=== PATIENT | male | born 1960 | race Caucasian/White ===

== ENCOUNTER 2021-05-01 14:01 | Emergency (ER) | payer SELFPAY ==
[2021-05-01 15:32] LABS: Absolute Lymphocytes (CBC) 2.6 K/uL (0.7-4.9); Basophils % 0.5 % (0-1.3); Hematocrit 39.9 % (39.6-49.0); Lymphocytes % 25.2 % (15.3-44.8); MPV 7.9 fL (7.6-11.3); RBC Red Blood Cell Count 4.36 M/uL (4.33-5.43)
--- NOTE | 2021-05-01 15:57 | RAD REPORT ---
EXAM DESCRIPTION: US - Extremity Nonvascular Limited - 05/01/2021 3:29 pm CLINICAL HISTORY: abscess Chest wall swelling COMPARISON: No comparisons TECHNIQUE: Real-time sonographic evaluation of the area of interest was performed. FINDINGS: Heterogenous subcutaneous collection is present in the area of interest right lateral ches t wall measuring 20 x 9 x 7 mm. This may represent a small subcutaneous abscess collection.
[2021-05-01] MEDS ORDERED: LIDOCAINE 1% MPF 5 ML VIAL ONE (16:41)
[2021-05-01] MEDS ORDERED: levETIRAcetam 500 MG TAB ONE (16:42)
[2021-05-01] MEDS ORDERED: SMZ./TMP. 800/160 MG TABLET ONE (16:42)
--- NOTE | 2021-05-01 16:56 | ER ---
Nurse's Notes [facility] Name: Daniel Espitia Age: 60 yrs Sex: Male : 1960 Arrival Date: 05/01/2021 Time: 14:04 Bed 7 Private MD: None, None Diagnosis: Cutaneous abscess of chest wall Presentation: 05/01 14:09 Chief complaint: Patient states: Abscess to R trunk for 4 days. Redness has spread into ll1 entire R breast area now. + fever at home, doesn't know how high. Coronavirus screen: Client denies travel out of the [place] in the last 14 days. At this time, the client does not indicate any symptoms associated with coronavirus-19. Ebola Screen: Patient denies travel to an Ebola-affected area in the 21 days before illness onset. Initial Sepsis Screen: Does the patient meet any 2 criteria? HR > 90 bpm. No. Patient's initial sepsis screen is negative. Does the patient have a suspected source of infection? Yes: Skin breakdown/wound. Risk Assessment: Do you want to hurt yourself or someone else? Patient reports no desire to harm self or others. Onset of symptoms was April 27, 2021. 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 Last tetanus immunization: unknown, Flu vaccine status is unknown. - Social history:: Smoking status: Patient denies any tobacco usage or history of. Screenin:23 Abuse screen: Denies threats or abuse. Denies injuries from another. Nutritional kg screening: No deficits noted. Tuberculosis screening: No symptoms or risk factors identified. Fall Risk None identified. No fall in past 12 months (0 pts). No secondary diagnosis (0 pts). IV access (20 points). Ambulatory Aid- None/Bed Rest/Nurse Assist (0 pts). Gait- Normal/Bed Rest/Wheelchair (0 pts) Mental Status- Oriented to own ability (0 pts). Total Shaw Fall Scale indicates No Risk (0-24 pts). Assessment: 15:22 General: Appears uncomfortable, Behavior is calm, cooperative, appropriate for age, kg quiet. Pain: Complains of pain in Right breast Pain radiates to anterior aspect of right upper chest, anterior aspect of left upper chest, xiphoid area, mid-sternal area and right breast, RIght arm. 15:23 Neuro: No deficits noted. Cardiovascular: No deficits noted. Respiratory: No deficits kg noted. GI: No signs and/or symptoms were reported involving the gastrointestinal system. : No deficits noted. EENT: No deficits noted. Derm: Skin is pink, red, Skin temperature is warm Abscess located on Right breast, right flank Parent/caregiver reports the patient having pain that is 8 out of 10 on a pain scale. oozing. Vital Signs: 14:09 BP 143 / 93; Pulse 105; Resp 18; Temp 98.4; Pulse Ox 96% on R/A; Weight 120.2 kg; ll1 Height 5 ft. 10 in. (177.80 cm); Pain 8/10; 15:50 BP 115 / 82; Pulse 84; Resp 20; Pulse Ox 94% on R/A; kg 16:15 BP 121 / 81; Pulse 86; Resp 20; Pulse Ox 93% on R/A; kg 16:45 BP 122 / 84; Pulse 87; Resp 20; Pulse Ox 93% on R/A; kg 17:10 BP 125 / 74; Pulse 84; Resp 20; Pulse Ox 98% on R/A; kg 14:09 Body Mass Index 38.02 (120.20 kg, 177.80 cm) ll1 ED Course: 14:04 Patient arrived in ED. ds1 14:04 None, None is Private Physician. ds1 14:11 Triage completed. ll1 14:12 Arm band placed on. ll1 14:49 Patient placed in an exam room, on a stretcher. ll1 14:53 [facility] Schultz [facility]C [facility]. kb 14:53 Chilango Ortega MD is Attending Physician. kb 15:05 Inserted saline lock: 20 gauge in left antecubital area, using aseptic technique. kg 15:21 Dorothy Bob, RN is Primary Nurse. kg 15:23 Patient has correct armband on for positive identification. Placed in gown. Call light kg in reach. 15:29 US Extrmty Nonvasular Limited In Process Unspecified. EDMS 17:10 No provider procedures requiring assistance completed. IV discontinued, intact, kg bleeding controlled, No redness/swelling at site. Pressure dressing applied. Administered Medications: 16:23 Drug: KeFLEX (cephalexin) 500 mg Route: PO; kg 17:01 Follow up: Response: No adverse reaction kg 16:23 Drug: Bactrim (trimethoprim-sulfamethoxazole) (160 mg-800 mg (DS) 1 tablet Route: PO; kg 17:00 Follow up: Response: No adverse reaction kg 16:23 Drug: Lidocaine (1 %) 1 vials Volume: 5 ml; Route: Infiltration; kg 17:00 Follow up: Response: No adverse reaction kg Outcome: 16:55 Discharge ordered by MD. kb 17:10 Discharged to home ambulatory. kg 17:10 Condition: good 17:10 Discharge instructions given to patient, Instructed on discharge instructions, follow up and referral plans. Demonstrated understanding of instructions, follow-up care, medications, wound care, Prescriptions given X 2. 17:12 Patient left the ED. kg Signatures: Dispatcher [employer] EDMS Sudha Schultz, LENS CEMENTER-C LENS CEMENTER-Ckb Ping Conrad ds1 Naida Downey, RN RN ll1 Dorothy Bob, RN RN kg Corrections: (The following items were deleted from the chart) 15:00 14:09 Chief complaint: Patient states: Abscess to R chest for 4 days. Redness has ll1 spread into R breast area now. + fever at home, doesn't know number. ll1
--- NOTE | 2021-05-01 16:56 | EDPHYS ---
Physician Documentation [facility] Name: Daniel Espitia Age: 60 yrs Sex: Male : 1960 Arrival Date: 05/01/2021 Time: 14:04 Bed 7 Private MD: None, None ED Physician Chilango Ortega HPI: 05/01 15:35 This 60 yrs old Male presents to ER via Ambulatory with complaints of Boil. kb 15:36 The patient presents with an abscess of the right lateral anterior chest. Description: kb draining, erythematous, swollen, warm. Onset: The symptoms/episode began/occurred 4 day(s) ago. Possible cause(s): unknown. Associated signs and symptoms: Pertinent positives: drainage, erythema, fever, swelling. Modifying factors: the symptoms are alleviated by nothing, the symptoms are aggravated by pressure, squeezing the lesion and expressing the contents, touching. Severity of symptoms: At their worst the symptoms were moderate, in the emergency department the symptoms are unchanged. The patient has not experienced similar symptoms in the past. The patient has not recently seen a physician. Pt reports abscess that started 3-4 days ago to right lateral chest. States redness started spreading so he came in. Reports subjective fever that is relieved with advil. 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 Last tetanus immunization: unknown, Flu vaccine status is unknown. - Social history:: Smoking status: Patient denies any tobacco usage or history of. ROS: 15:35 Respiratory: Negative for shortness of breath, cough, wheezing, and pleuritic chest kb pain. 15:35 Constitutional: Positive for fever, Negative for body aches, chills, fatigue, malaise, poor PO intake, weight loss. 15:35 Skin: Positive for abscess, cellulitis, of the right lateral anterior chest. 15:35 All other systems are negative. Exam: 15:34 Constitutional: This is a well developed, well nourished patient who is awake, alert, kb and in no acute distress. ENT: Moist Mucous membranes Respiratory: Respirations even and unlabored. No increased work of breathing, no retractions or nasal flaring. Abdomen/GI: Soft, non-tender. No distention MS/ Extremity: Pulses equal, no cyanosis. Neurovascular intact. Full, normal range of motion. Neuro: Awake and alert, GCS 15, oriented to person, place, time, and situation. Moves all extremities. Normal gait. Psych: Awake, alert, with orientation to person, place and time. Behavior, mood, and affect are within normal limits. 15:34 Skin: abscess, that is moderate sized, of the right lateral anterior chest, with drainage, with surrounding cellulitis, that is moderate. Vital Signs: 14:09 BP 143 / 93; Pulse 105; Resp 18; Temp 98.4; Pulse Ox 96% on R/A; Weight 120.2 kg; ll1 Height 5 ft. 10 in. (177.80 cm); Pain 8/10; 15:50 BP 115 / 82; Pulse 84; Resp 20; Pulse Ox 94% on R/A; kg 16:15 BP 121 / 81; Pulse 86; Resp 20; Pulse Ox 93% on R/A; kg 16:45 BP 122 / 84; Pulse 87; Resp 20; Pulse Ox 93% on R/A; kg 17:10 BP 125 / 74; Pulse 84; Resp 20; Pulse Ox 98% on R/A; kg 14:09 Body Mass Index 38.02 (120.20 kg, 177.80 cm) ll1 Procedures: 16:54 I \T\ D: Incision and drainage was performed for an abscess of the right right lateral kb anterior chest Prepped with Betadine, Anesthetized with 3 ml's 1% Lidocaine. Incised with #11 blade. Drained moderate amount purulent fluid. Dressing: sterile 4x4 gauze, the patient tolerated the procedure well. MDM: 14:53 Patient medically screened. kb 15:35 Data reviewed: vital signs, nurses notes. Data interpreted: Pulse oximetry: on room air kb is 96 %. Interpretation: normal. 16:55 Counseling: I had a detailed discussion with the patient and/or guardian regarding: the kb historical points, exam findings, and any diagnostic results supporting the discharge/admit diagnosis, lab results, radiology results, the need for outpatient follow up, a family practitioner, to return to the emergency department if symptoms worsen or persist or if there are any questions or concerns that arise at home. 07/16 15:04 Order name: CBC with Diff; Complete Time: 15:33 kb 05/01 15:04 Order name: Basic Metabolic Panel; Complete Time: 15:49 kb 05/01 15:04 Order name: Blood Culture Adult (2) 05/01 15:04 Order name: Extrmty Nonvasular Limited; Complete Time: 15:57 kb 05/01 15:04 Order name: IV Start; Complete Time: 16:17 kb 05/01 15:58 Order name: I\T\D Setup; Complete Time: 16:17 kb Administered Medications: 16:23 Drug: KeFLEX (cephalexin) 500 mg Route: PO; kg 17:01 Follow up: Response: No adverse reaction kg 16:23 Drug: Bactrim (trimethoprim-sulfamethoxazole) (160 mg-800 mg (DS) 1 tablet Route: PO; kg 17:00 Follow up: Response: No adverse reaction kg 16:23 Drug: Lidocaine (1 %) 1 vials Volume: 5 ml; Route: Infiltration; kg 17:00 Follow up: Response: No adverse reaction kg Disposition Summary: 05/01/21 16:55 Discharge Ordered Location: Home kb Condition: Stable kb Diagnosis - Cutaneous abscess of chest wall kb Followup: kb - With: Emergency Department - When: As needed - Reason: Worsening of condition Followup: kb - With: Private Physician - When: 2 - 3 days - Reason: Recheck today's complaints, Continuance of care, Re-evaluation by your physician Discharge Instructions: - Discharge Summary Sheet kb - Skin Abscess, [id number] kb - Incision and Drainage, Care After kb Forms: - Medication Reconciliation Form kb - Thank You Letter kb - Antibiotic Education kb - Prescription Opioid Use kb Prescriptions: - Cephalexin 500 mg Oral Capsule - take 1 capsule by ORAL route every 8 hours for 10 days; 30 capsule; Refills: 0, kb Product Selection Permitted - Bactrim DS 800-160 mg Oral Tablet - take 1 tablet by ORAL route every 12 hours for 10 days; 20 tablet; Refills: 0, kb Product Selection Permitted Addendum: 05/03/2021 07:23 Co-signature as Attending Physician, Chilango Ortega MD I agree with the assessment and k dr plan of care. Signatures: Dispatcher [employer] EDSudha Acevedo, CATTLE CARE WORKER-C CATTLE CARE WORKER-Ckb Chilango Ortega MD MD kdr Naida Downey RN RN ll1 Dorothy Bob RN RN kg
[2021-05-01 17:22] VITALS: TEMP 98.4
[2021-05-01 17:28] VITALS: BP 125/74; O2SAT 98
== END 2021-05-01 17:12 | disposition home or self-care (01) ==
LOC: ER 14:01
PROC: 0H95XZZ Drainage of Chest Skin, External Approach (ICD-10-PCS; principal; 2021-05-01)
DX: L02.213 Cutaneous abscess of chest wall (principal); B19.20 Unspecified viral hepatitis C without hepatic coma
CPT/HCPCS: 36415; 76882; 80048; 85025; 87040; 99284

== ENCOUNTER 2022-06-24 17:01 | Emergency (ER) | payer SELFPAY ==
[2022-06-24 19:19] LABS: Absolute Lymphocytes (CBC) 3.2 K/uL (0.7-4.9); Hematocrit 44.1 % (39.6-49.0); Lymphocytes % 29.6 % (15.3-44.8); MCV 90.5 fL (80-100); MPV 8.1 fL (7.6-11.3); RBC Red Blood Cell Count 4.87 M/uL (4.33-5.43)
[2022-06-24 19:42] LABS: Albumin 3.8 g/dL (3.4-5.0); Bilirubin Total 0.4 mg/dL (0.2-1.0); Potassium 3.8 mmol/L (3.5-5.1); Protein, Total 7.8 g/dL (6.4-8.2)
[2022-06-24 20:32] LABS: Urine Blood 1+ (Negative); Urine Glucose Negative (Negative); Urine Protein Negative (Negative)
--- NOTE | 2022-06-24 20:42 | EDPHYS ---
Physician Documentation [facility] Name: Daniel Espitia Age: 61 yrs Sex: Male : 1960 Arrival Date: 06/24/2022 Time: 17:02 Bed 20 Private MD: ED Physician Aly Lay HPI: 06/24 20:26 This 61 yrs old Male presents to ER via Ambulatory with complaints of Doesn't Feel kb Right, Flu Symptoms. 20:26 The patient or guardian reports flu symptoms, myalgias. Onset: The symptoms/episode kb began/occurred 3 day(s) ago. Severity of symptoms: At their worst the symptoms were moderate, in the emergency department the symptoms are unchanged. Modifying factors: The symptoms are alleviated by nothing, the symptoms are aggravated by nothing. Associated signs and symptoms: The patient has no apparent associated signs or symptoms. The patient has not experienced similar symptoms in the past. The patient has not recently seen a physician. Pt reports fatigue, malaise, chills and bodyaches for 2-3 days. Pt denies cough, congestion, fever, n/v/d, urinary symptoms, abd pain, chest pain, shortness of breath, headache. Historical: - Allergies: 17:22 No Known Allergies; ld1 - PMHx: 17:22 Hepatitis C; ld1 - PSHx: 17:22 blood patch-brain bleed; ld1 - Immunization history:: Adult Immunizations up to date, Client reports having NOT received the Covid vaccine. - Social history:: Smoking status: Patient denies any tobacco usage or history of. Patient/guardian denies using alcohol. ROS: 20:26 Respiratory: Negative for shortness of breath, cough, wheezing, and pleuritic chest kb pain. 20:26 Constitutional: Positive for body aches, chills, fatigue, malaise. 20:26 All other systems are negative. Exam: 20:26 Constitutional: This is a well developed, well nourished patient who is awake, alert, kb and in no acute distress. Head/Face: Normocephalic, atraumatic. ENT: Moist Mucous membranes Cardiovascular: Regular rate and rhythm with a normal S1 and S2. No gallops, murmurs, or rubs. No pulse deficits. Respiratory: Respirations even and unlabored. No increased work of breathing. Talking in full sentences Abdomen/GI: Soft, non-tender. No distention Skin: Warm, dry with normal turgor. Normal color. MS/ Extremity: Pulses equal, no cyanosis. Neurovascular intact. Full, normal range of motion. Neuro: Awake and alert, GCS 15, oriented to person, place, time, and situation. Moves all extremities. Normal gait. Psych: Awake, alert, with orientation to person, place and time. Behavior, mood, and affect are within normal limits. Vital Signs: 17:20 BP 152 / 118; Pulse 94; Resp 20; Temp 98.3(O); Pulse Ox 99% on R/A; Weight 117.93 kg; ld1 Height 6 ft. 2 in. (187.96 cm); Pain 0/10; 20:55 BP 115 / 69; Pulse 78; Resp 14; Pulse Ox 98% on R/A; ja4 17:20 Body Mass Index 33.38 (117.93 kg, 187.96 cm) ld1 [place] Coma Score: 20:22 Eye Response: spontaneous(4). Verbal Response: oriented(5). Motor Response: obeys ja4 commands(6). Total: 15. MDM: 17:23 Patient medically screened. kb 20:26 Data reviewed: vital signs, nurses notes. Data interpreted: Pulse oximetry: on room air kb is 99 %. Interpretation: normal. Counseling: I had a detailed discussion with the patient and/or guardian regarding: the historical points, exam findings, and any diagnostic results supporting the discharge/admit diagnosis, lab results, the need for outpatient follow up, a family practitioner, to return to the emergency department if symptoms worsen or persist or if there are any questions or concerns that arise at home. 06/24 17:24 Order name: Flu; Complete Time: 18:11 kb 06/24 17:24 Order name: COVID-19 SARS RT PCR (Document "Date of Onset" if Symptomatic); Complete kb Time: 18:13 06/24 18:32 Order name: CBC with Diff; Complete Time: 19:21 kb 06/24 18:32 Order name: CMP; Complete Time: 19:43 kb 06/24 18:32 Order name: [place] Screen Profile; Complete Time: 19:50 kb 06/24 20:32 Order name: Urine Dipstick-Ancillary; Complete Time: 20:38 EDMS 06/24 18:32 Order name: Urine Dipstick-Ancillary (obtain specimen); Complete Time: 20:31 kb 06/24 18:32 Order name: IV Start; Complete Time: 18:57 kb Administered Medications: No medications were administered Disposition Summary: 06/24/22 20:41 Discharge Ordered Location: Home kb Condition: Stable kb Diagnosis - Other malaise and fatigue kb Followup: kb - With: Emergency Department - When: As needed - Reason: Worsening of condition Followup: kb - With: Private Physician - When: 2 - 3 days - Reason: Recheck today's complaints, Continuance of care, Re-evaluation by your physician Discharge Instructions: - Discharge Summary Sheet kb - Viral Illness, Adult kb Forms: - Medication Reconciliation Form kb - Thank You Letter kb - Antibiotic Education kb - Prescription Opioid Use kb Addendum: 06/27/2022 23:30 Co-signature as Attending Physician, Aly Lay DO I agree with the assessment and m s3 plan of care. Signatures: Dispatcher [employer] EDFL Sudha Schultz, INDUCTION HEATING EQUIPMENT SETTER-C INDUCTION HEATING EQUIPMENT SETTER-Ckb Aly Lay DO DO ms3 Kendra Felton, RN RN ld1 Corrections: (The following items were deleted from the chart) 06/24 20:51 20:26 Pt reports fatigue, malaise, chills and bodyaches for 2-3 days. kb
--- NOTE | 2022-06-24 20:42 | ER ---
Nurse's Notes [facility] Name: Daniel Espitia Age: 61 yrs Sex: Male : 1960 Arrival Date: 06/24/2022 Time: 17:02 Bed 20 Private MD: Diagnosis: Other malaise and fatigue Presentation: 06/24 17:20 Chief complaint: Patient states: Chills, body aches X 2-3 days. Coronavirus screen: At ld1 this time, the client does not indicate any symptoms associated with coronavirus-19. Ebola Screen: No symptoms or risks identified at this time. Initial Sepsis Screen: Does the patient meet any 2 criteria? No. Patient's initial sepsis screen is negative. Does the patient have a suspected source of infection? No. Patient's initial sepsis screen is negative. Risk Assessment: Do you want to hurt yourself or someone else? Patient reports no desire to harm self or others. Onset of symptoms was June 24, 2022. 17:20 Method Of Arrival: Ambulatory ld1 17:20 Acuity: KRISTIE 3 ld1 Triage Assessment: 17:22 General: Appears in no apparent distress. comfortable, Behavior is calm, cooperative, ld1 appropriate for age. Pain: Denies pain. EENT: No signs and/or symptoms were reported regarding the EENT system. Neuro: Level of Consciousness is awake, alert, obeys commands, Oriented to person, place, time, situation. Cardiovascular: Capillary refill < 3 seconds Patient's skin is warm and dry. Respiratory: Airway is patent Respiratory effort is even, unlabored. GI: Abdomen is round non-distended. : No signs and/or symptoms were reported regarding the genitourinary system. Derm: No signs and/or symptoms reported regarding the dermatologic system. Musculoskeletal: No signs and/or symptoms reported regarding the musculoskeletal system. Historical: - Allergies: 17:22 No Known Allergies; ld1 - PMHx: 17:22 Hepatitis C; ld1 - PSHx: 17:22 blood patch-brain bleed; ld1 - Immunization history:: Adult Immunizations up to date, Client reports having NOT received the Covid vaccine. - Social history:: Smoking status: Patient denies any tobacco usage or history of. Patient/guardian denies using alcohol. Screenin:22 Abuse screen: Denies threats or abuse. Nutritional screening: No deficits noted. ja4 Tuberculosis screening: No symptoms or risk factors identified. Fall Risk IV access (20 points). Assessment: 20:22 General: Appears uncomfortable, obese, Behavior is cooperative, drowsy. Pain: Denies ja4 pain. Neuro: No deficits noted. Cardiovascular: Reports fatigue, shortness of breath, Denies chest pain. Respiratory: No deficits noted. Vital Signs: 17:20 BP 152 / 118; Pulse 94; Resp 20; Temp 98.3(O); Pulse Ox 99% on R/A; Weight 117.93 kg; ld1 Height 6 ft. 2 in. (187.96 cm); Pain 0/10; 20:55 BP 115 / 69; Pulse 78; Resp 14; Pulse Ox 98% on R/A; ja4 17:20 Body Mass Index 33.38 (117.93 kg, 187.96 cm) ld1 [place] Coma Score: 20:22 Eye Response: spontaneous(4). Verbal Response: oriented(5). Motor Response: obeys ja4 commands(6). Total: 15. ED Course: 17:02 Patient arrived in ED. am2 17:04 Sudha Schultz FNP-C [facility]. kb 17:04 Aly Lay DO is Attending Physician. kb 17:22 Triage completed. ld1 17:22 Arm band placed on right wrist. Patient placed. ld1 17:28 Flu Sent. iw 17:28 COVID-19 SARS RT PCR (Document "Date of Onset" if Symptomatic) Sent. iw 18:57 Initial lab(s) drawn, by me, sent to lab. Inserted saline lock:. kj1 18:57 Inserted saline lock: 20 gauge in left antecubital area, using aseptic technique. Blood kj1 collected. 20:21 Barber Mixon, RN is Primary Nurse. ja4 20:22 Bed in low position. Call light in reach. Adult w/ patient. ja4 20:55 IV discontinued. ja4 Administered Medications: No medications were administered Medication: 20:22 VIS not applicable for this client. ja4 Outcome: 20:41 Discharge ordered by . kb 20:55 Discharged to home ambulatory. ja4 20:55 Condition: stable 20:55 Discharge instructions given to patient, family, Instructed on discharge instructions, follow up and referral plans. medication usage, Demonstrated understanding of instructions, follow-up care, medications. 20:58 Patient left the ED. ja4 Signatures: Sudha Schultz, CARLITO TERRAZAS-Soraya Colin, RN Valentina Walton am2 Darcy Schultz kj1 Kendra Felton RN RN ld1 Barber Mixon RN RN ja4 Corrections: (The following items were deleted from the chart) 17:25 17:20 Pulse 94bpm; Resp 20bpm; Pulse Ox 99% RA; Temp 98.3F Oral; 117.93 kg; Height 6 ld1 ft. 2 in.; BMI: 33.3; Pain 0/10; ld1
[2022-06-24 23:10] VITALS: TEMP 98.3
[2022-06-24 23:13] VITALS: BP 115/69; O2SAT 98
== END 2022-06-24 20:58 | disposition home or self-care (01) ==
LOC: ER 17:01
DX: R53.81 Other malaise (principal); R53.83 Other fatigue
CPT/HCPCS: 36415; 80053; 81003; 85025; 86308; 87804; 99283; U0003

== ENCOUNTER 2022-06-26 14:11 | Emergency (ER) | payer SELFPAY ==
[2022-06-26 15:02] LABS: Absolute Lymphocytes (CBC) 3.1 K/uL (0.7-4.9); Hematocrit 42.7 % (39.6-49.0); Lymphocytes % 29.1 % (15.3-44.8); MCV 90.2 fL (80-100); MPV 8.2 fL (7.6-11.3); RBC Red Blood Cell Count 4.74 M/uL (4.33-5.43)
--- NOTE | 2022-06-26 15:17 | RAD REPORT ---
EXAM DESCRIPTION: RAD - Chest Single View - 06/26/2022 3:10 pm CLINICAL HISTORY: MALAISE COMPARISON: CHEST SINGLE VIEW dated 06/01/2010; CHEST PA AND LAT 2 VIEW dated 09/15/2009; ABDOMEN ACU TE SERIES dated 03/30/2009 FINDINGS: Lines: None. Lungs: No evidence of edema or pneumonia. Pleural: No significant pleural effusions or pneumothorax. Cardiac: The heart size is within normal limits. Mediastinum: Within normal limits. Bones: No acute fractures. Other: None IMPRESSION: No acute cardiopulmonary disease.
[2022-06-26 15:19] LABS: Albumin 3.8 g/dL (3.4-5.0); Bilirubin Total 0.5 mg/dL (0.2-1.0); Potassium 3.8 mmol/L (3.5-5.1); Protein, Total 7.7 g/dL (6.4-8.2)
--- NOTE | 2022-06-26 15:23 | RAD REPORT ---
EXAM DESCRIPTION: CT - Head Brain Wo Cont - 06/26/2022 3:09 pm CLINICAL HISTORY: gen weaknss,confused COMPARISON: HEAD BRAIN W O CONTRAST dated 06/01/2010; HEAD BRAIN W O CONTRAST dated 11/12/2009 TECHNIQUE: All CT scans are performed using dose optimization technique as appropriate and may inclu de automated exposure control or mA/KV adjustment according to patient size. FINDINGS: No intracranial hemorrhage, hydrocephalus or extra-axial fluid collection.No areas of brai n edema or evidence of midline shift. The paranasal sinuses and mastoids are clear. The calvarium is intact. IMPRESSION: No acute intracranial abnormality.
[2022-06-26 15:31] LABS: Urine Blood 2+ (Negative); Urine Glucose Negative (Negative); Urine Protein 1+ (Negative); Urine pH 6.5 (5.0-7.0)
[2022-06-26] MEDS ORDERED: NA CHLORIDE 0.9% 1,000 ML ONE (16:05)
--- NOTE | 2022-06-26 16:40 | ER ---
Nurse's Notes [facility] Name: Daniel Espitia Age: 61 yrs Sex: Male : 1960 Arrival Date: 06/26/2022 Time: 14:13 Bed 7 Private MD: Diagnosis: Muscle weakness (generalized) Presentation: 06/26 14:21 Chief complaint: Patient states: feel bad for the last couple days, weak all over, kr3 nausea. Coronavirus screen: Vaccine status: Patient reports being unvaccinated. Client denies travel out of the [place] in the last 14 days. Ebola Screen: Patient denies travel to an Ebola-affected area in the 21 days before illness onset. Ebola Screen: Patient denies travel to an Ebola-affected area in the 21 days before illness onset. Initial Sepsis Screen: Does the patient meet any 2 criteria? HR > 90 bpm. Yes Does the patient have a suspected source of infection? Yes: Acute abdominal pain. Risk Assessment: Do you want to hurt yourself or someone else? Patient reports no desire to harm self or others. 14:21 Method Of Arrival: Ambulatory kr3 14:26 Onset of symptoms was June 24, 2022. kr3 14:26 Acuity: KRISTIE 3 kr3 Triage Assessment: 14:26 General: Appears distressed, uncomfortable, Behavior is calm, cooperative, appropriate kr3 for age. Pain: Denies pain. 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 - Social history:: Smoking status: Patient denies any tobacco usage or history of. Screenin:30 Abuse screen: Denies threats or abuse. Denies injuries from another. Nutritional jl7 screening: No deficits noted. Tuberculosis screening: No symptoms or risk factors identified. Fall Risk IV access (20 points). Total Shaw Fall Scale indicates No Risk (0-24 pts). Assessment: 15:30 General: Appears in no apparent distress. uncomfortable, Behavior is calm, cooperative, jl7 drowsy. Pain: Denies pain. Neuro: Level of Consciousness is awake, alert, obeys commands, Oriented to person, place, time, situation. Cardiovascular: Denies chest pain, Patient's skin is warm and dry. Respiratory: Airway is patent Respiratory effort is even, unlabored, Respiratory pattern is regular, symmetrical, Denies shortness of breath. GI: Abdomen is round non-distended, Bowel sounds present X 4 quads. Abd is soft and non tender Reports normal bowel habits, Patient currently denies abdominal pain. : Denies burning with urination, pain with urination. Derm: Skin is pink, warm \\T\\ dry. Vital Signs: 14:21 Pulse 106; Resp 18; Temp 97.7; Pulse Ox 98% on R/A; Weight 115.67 kg; Height 5 ft. 9 kr3 in. (175.26 cm); Pain 0/10; 14:27 BP 132 / 104; kr3 16:12 BP 108 / 81; Pulse 76; Resp 15; Pulse Ox 100% ; Pain 0/10; jl7 14:21 Body Mass Index 37.66 (115.67 kg, 175.26 cm) kr3 ED Course: 14:13 Patient arrived in ED. rg4 14:21 Arm band placed on. kr3 14:25 [facility]res Cal[facility]. jl9 14:25 Alcon Ramos MD is Attending Physician. jl9 14:26 Triage completed. kr3 14:27 Patient placed in an exam room, on a stretcher. kr3 14:51 Inserted saline lock: 20 gauge in left antecubital area, using aseptic technique. Blood kc6 collected. 14:51 Lactate Sent. kc6 14:51 CBC with Diff Sent. kc6 14:51 CMP Sent. kc6 14:51 Lipase Sent. kc6 14:53 Dao Hidalgo, ALAYNA is Primary Nurse. jl7 15:00 Initial lab(s) drawn, by ED staff, sent to lab. COVID swab sent to lab. jl7 15:10 CT Head Brain wo Cont In Process Unspecified. EDMS 15:11 XRAY Chest (1 view) In Process Unspecified. EDMS 15:11 SARS-COV-2 RT PCR (Document "Date of Onset" if Symptomatic) Sent. kc6 15:30 Patient has correct armband on for positive identification. Bed in low position. Call jl7 light in reach. Side rails up X2. quality assurance monitor on. Pulse ox on. 17:47 No provider procedures requiring assistance completed. IV discontinued, intact, jl7 bleeding controlled, No redness/swelling at site. Pressure dressing applied. Administered Medications: 16:04 Drug: NS 0.9% 1000 ml Route: IV; Rate: 1000 ml; Site: left antecubital; jl7 Medication: 15:30 VIS not applicable for this client. jl7 Outcome: 16:39 Discharge ordered by MD. jl9 17:47 Discharged to home ambulatory, with family. jl7 17:47 Condition: stable 17:47 Discharge instructions given to patient, family, Instructed on discharge instructions, follow up and referral plans. Demonstrated understanding of instructions, follow-up care. 17:47 Patient left the ED. jl7 Signatures: Dispatcher [employer] [id number] [id number] Dao Hidalgo RN RN jl7 Andres Calvo jl9 Argentina Vasquez RN RN kr3 Anna Huber kc6
--- NOTE | 2022-06-26 16:40 | EDPHYS ---
Physician Documentation [facility] Name: Daniel Espitia Age: 61 yrs Sex: Male : 1960 Arrival Date: 06/26/2022 Time: 14:13 Bed 7 Private MD: MADDI Physician Alcon Ramos HPI: 06/26 14:53 This 61 yrs old Male presents to ER via Ambulatory with complaints of jl9 generalized weakness and nausea x1 week. Patient denies any pain and states that he just feels weak. . 14:53 Onset: The symptoms/episode began/occurred 1 week(s) ago. Associated signs and jl9 symptoms: Pertinent positives:. Modifying factors: The patient symptoms are alleviated by nothing, the patient symptoms are aggravated by nothing. The patient has not experienced similar symptoms in the past. The patient has not recently seen a physician. 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 - Social history:: Smoking status: Patient denies any tobacco usage or history of. ROS: 14:55 Constitutional: Negative for fever, chills, and weight loss, Eyes: Negative for injury, jl9 pain, redness, and discharge, ENT: Negative for injury, pain, and discharge, Neck: Negative for injury, pain, and swelling, Cardiovascular: Negative for chest pain, palpitations, and edema, Respiratory: Negative for shortness of breath, cough, wheezing, and pleuritic chest pain. 14:55 Back: Negative for injury and pain, : Negative for injury, bleeding, discharge, and swelling, MS/Extremity: Negative for injury and deformity, Skin: Negative for injury, rash, and discoloration. 14:55 Psych: Negative for depression, anxiety, suicide ideation, homicidal ideation, and hallucinations, Allergy/Immunology: Negative for hives, rash, and allergies, Endocrine: Negative for neck swelling, polydipsia, polyuria, polyphagia, and marked weight changes, Hematologic/Lymphatic: Negative for swollen nodes, abnormal bleeding, and unusual bruising. 14:55 Abdomen/GI: Positive for nausea. 14:55 Neuro: Positive for weakness. Exam: 14:56 Constitutional: This is a well developed, well nourished patient who is awake, alert, jl9 and in no acute distress. Head/Face: Normocephalic, atraumatic. Eyes: Pupils equal round and reactive to light, extra-ocular motions intact. Lids and lashes normal. Conjunctiva and sclera are non-icteric and not injected. Cornea within normal limits. Periorbital areas with no swelling, redness, or edema. ENT: Mucous membranes moist. Neck: Trachea midline, no thyromegaly or masses palpated, and no cervical lymphadenopathy. Supple, full range of motion without nuchal rigidity, or vertebral point tenderness. No Meningismus. Chest/axilla: Normal chest wall appearance and motion. Nontender with no deformity. No lesions are appreciated. Cardiovascular: Regular rate and rhythm with a normal S1 and S2. No gallops, murmurs, or rubs. Normal PMI, no JVD. No pulse deficits. Respiratory: Lungs have equal breath sounds bilaterally, clear to auscultation and percussion. No rales, rhonchi or wheezes noted. No increased work of breathing, no retractions or nasal flaring. Abdomen/GI: Soft, non-tender, with normal bowel sounds. No distension or tympany. No guarding or rebound. No evidence of tenderness throughout. Back: No spinal tenderness. No costovertebral tenderness. Full range of motion. Skin: Warm, dry with normal turgor. Normal color with no rashes, no lesions, and no evidence of cellulitis. MS/ Extremity: Pulses equal, no cyanosis. Neurovascular intact. Full, normal range of motion. Neuro: Awake and alert, GCS 15, oriented to person, place, time, and situation. Cranial nerves II-XII grossly intact. Motor strength 5/5 in all extremities. Sensory grossly intact. Cerebellar exam normal. Normal gait. Psych: Awake, alert, with orientation to person, place and time. Behavior, mood, and affect are within normal limits. Vital Signs: 14:21 Pulse 106; Resp 18; Temp 97.7; Pulse Ox 98% on R/A; Weight 115.67 kg; Height 5 ft. 9 kr3 in. (175.26 cm); Pain 0/10; 14:27 BP 132 / 104; kr3 16:12 BP 108 / 81; Pulse 76; Resp 15; Pulse Ox 100% ; Pain 0/10; jl7 14:21 Body Mass Index 37.66 (115.67 kg, 175.26 cm) kr3 MDM: 14:26 Patient medically screened. jl9 14:56 Data reviewed: vital signs, nurses notes. jl9 16:38 Counseling: I had a detailed discussion with the patient and/or guardian regarding: the [facility] historical points, exam findings, and any diagnostic results supporting the discharge/admit diagnosis, lab results, radiology results, the need for outpatient follow up, to return to the emergency department if symptoms worsen or persist or if there are any questions or concerns that arise at home, Discussed findings with patient. Patient remains pain free and states that he feels better and agrees to follow up with PCP in 1-2 days. . 06/26 14:28 Order name: CBC with Diff; Complete Time: 15:25 06/26 14:28 Order name: CMP; Complete Time: 15:25 06/26 14:28 Order name: Lipase; Complete Time: 15:25 06/26 14:28 Order name: Lactate; Complete Time: 15:25 06/26 14:28 Order name: SARS-COV-2 RT PCR (Document "Date of Onset" if Symptomatic) 06/26 15:22 Order name: SARS-COV-2 RT PCR; Complete Time: 16:23 EDMS 06/26 14:28 Order name: IV Saline Lock; Complete Time: 14:51 06/26 14:28 Order name: Labs collected and sent; Complete Time: 14:51 06/26 14:28 Order name: Urine Dipstick-Ancillary (obtain specimen); Complete Time: 15:30 06/26 14:28 Order name: XRAY Chest (1 view); Complete Time: 15:25 06/26 14:53 Order name: CT Head Brain wo Cont; Complete Time: 15:25 06/26 15:31 Order name: Urine Dipstick-Ancillary; Complete Time: 16:23 EDMS Administered Medications: 16:04 Drug: NS 0.9% 1000 ml Route: IV; Rate: 1000 ml; Site: left antecubital; jl7 Disposition Summary: 06/26/22 16:39 Discharge Ordered Location: Home jl9 Condition: Stable jl9 Diagnosis - Muscle weakness (generalized) jl9 Followup: jl9 - With: Private Physician - When: 1 - 2 days - Reason: Recheck today's complaints, Continuance of care, Re-evaluation by your physician Discharge Instructions: - Discharge Summary Sheet jl9 - Weakness, [id number] jl9 Forms: - Medication Reconciliation Form jl9 - Thank You Letter jl9 - Antibiotic Education jl9 - Prescription Opioid Use jl9 Signatures: Dispatcher [employer] Dao Cabrera RN RN jl7 Andres Calvo jl9 Argentina Vasquez RN RN kr3
[2022-06-26 18:27] VITALS: TEMP 97.7
[2022-06-26 18:39] VITALS: BP 108/81; O2SAT 100
== END 2022-06-26 17:47 | disposition home or self-care (01) ==
LOC: ER 14:11
DX: M62.81 Muscle weakness (generalized) (principal); R11.0 Nausea; Z20.822 Contact with and (suspected) exposure to COVID-19
CPT/HCPCS: 36415; 70450; 71045; 80053; 81003; 83605; 83690; 85025; 99284; J7030; U0003